=== PATIENT | female | born 1985 | race American Indian/Alaskan Native ===

== ENCOUNTER 2016-11-10 19:19 | Emergency (ER) | payer BC, MEDICAID ==
[2016-11-10 20:45] VITALS: BP 141/90
--- NOTE | 2016-11-10 23:22 | Emergency Department Report ---
ED N/V/D HPI - General Chief complaint: Dental/Oral Stated complaint: TOOTHACHE Time Seen by Provider: 11/10/16 23:20 Source: patient, family Mode of arrival: Ambulatory Limitations: No Limitations - Related Data Allergies Allergy/AdvReac Type Severity Reaction Status Date / Time No Known Allergies Allergy Unverified 04/02/16 23:28 ED Review of Systems ROS: Stated complaint: TOOTHACHE Other details as noted in HPI ED Past Medical Hx - Past Medical History Previous Medical History?: No Hx Hypertension: No Hx Diabetes: No Hx Deep Vein Thrombosis: No Hx Renal Disease: No Hx Sickle Cell Disease: No Hx Seizures: No Hx Asthma: No Hx HIV: No - Surgical History Past Surgical History?: Yes Additional Surgical History: [place] Teeth, Tonsils - Social History Smoking Status: Current Every Day Smoker Substance Use Type: Alcohol ED Physical Exam - General Limitations: No Limitations ED Course Vital Signs 11/10/16 20:00 Temperature 99.4 F Pulse Rate 80 Respiratory 20 Rate Blood Pressure 141/90 [Right] O2 Sat by Pulse 99 Oximetry Critical care attestation.: If time is entered above; I have spent that time in minutes in the direct care of this critically ill patient, excluding procedure time. ED Disposition Condition: Stable Referrals: PRIMARY CARE, [Primary Care Provider] - 3-5 Days
--- NOTE | 2016-11-10 23:23 | Emergency Department Report ---
HPI - General Chief Complaint: Dental/Oral Time Seen by Provider: 11/10/16 23:20 - HPI HPI: Patient complaining of toothache to her left upper back tooth 3 weeks. She said she was supposed to get it pulled and her dentist was supposed to refer her to sit on that visit on test, none medication. reports pain 4/10 and aching. Denies any fever or facial swelling. No nausea or vomiting. If any facial pain, sore throat or drooling. No definite cough, shortness of breath. She took [id number] pain medication but it's not helping much. ED Past Medical Hx - Past Medical History Previous Medical History?: No Hx Hypertension: No Hx Diabetes: No Hx Deep Vein Thrombosis: No Hx Renal Disease: No Hx Sickle Cell Disease: No Hx Seizures: No Hx Asthma: No Hx HIV: No - Surgical History Past Surgical History?: Yes Additional Surgical History: [place] Teeth, Tonsils - Family History Family history: no significant - Social History Smoking Status: Current Every Day Smoker Substance Use Type: Alcohol - Medications Home Medications: Home Medications Medication Instructions Recorded Confirmed Last Taken Type Acetaminophen/Codeine [Tylenol 1 tab PO Q6H PRN #12 tab 11/11/16 Unknown Rx /Codeine # 3 tab] Amoxicillin [Amoxicillin TAB] 875 mg PO BID #20 tablet 11/11/16 Unknown Rx Ibuprofen [Motrin] 600 mg PO Q8H PRN #15 tablet 11/11/16 Unknown Rx ED Review of Systems ROS: Stated complaint: TOOTHACHE Other details as noted in HPI Comment: All other systems reviewed and negative Constitutional: denies: chills, fever Eyes: denies: eye pain, eye discharge, vision change ENT: dental pain. denies: ear pain, throat pain, congestion Respiratory: no symptoms reported Cardiovascular: denies: chest pain, palpitations, edema, syncope Gastrointestinal: denies: abdominal pain, nausea, vomiting Musculoskeletal: denies: back pain, arthralgia, myalgia Skin: denies: rash, lesions Neurological: denies: headache Physical Exam - Physical Exam Vital Signs: Vital Signs 11/10/16 20:00 Temperature 99.4 F Pulse Rate 80 Respiratory 20 Rate Blood Pressure 141/90 [Right] O2 Sat by Pulse 99 Oximetry General: This is a 31-year-old female well-nourished well-developed in no acute distress. Physical Exam: Head: Normocephalic atraumatic Mouth: Moist, no pharyngeal exudate or erythema. Uvula is midline and oral airway is patent. No facial swelling. No peritonsillar abscesses. Patient with braces. Noted cavity to left tooth #16. Tenderness to palpate around #16 with mild erythema without any induration or fluctuance. No gingival enlargement. Nose: Nl mucosa. Clear Drainage. Maxillary and frontal sinuses nontender to palpate Neck: Supple, no C-spine tenderness, no tracheal deviation. Nontender to palpate. no adenopathy Ears: Bilateral TMs NL exam Bilateral EAC without any redness swelling or drainage. Abdomen: Soft, nontender to palpate in all quadrants, normal bowel sounds in all quadrant and negative CVA tenderness bilaterally. Eyes: Bilateral pupils equal and reactive to light, bilateral EOM intact. Bilateral sclera and conjunctiva without injection. Normal accommodation. Lungs: Clear to auscultate bilaterally no rhonchi wheezes or rales. Normal work of breathing extremity; No CCE. +2 pulses. No neurovascular compromise Cardiovascular: S1-S2, regular rate rhythm. No murmurs. Skin: clean Dry and intact no rash no lesions Psych: Normal mood and behavior ED Course Vital Signs 11/10/16 20:00 Temperature 99.4 F Pulse Rate 80 Respiratory 20 Rate Blood Pressure 141/90 [Right] O2 Sat by Pulse 99 Oximetry - Reevaluation(s) Reevaluation #1: 11/11/16 00:15 Patient given Motrin 800 mg while in the emergency room for toothache. ED Medical Decision Making - Medical Decision Making ED course: The patient that I'll put her on Tylenol 3, Motrin and amoxicillin and she'll need to call her dentist or I can refer her to [facility] for management of dental pain and cavities. Patient with toothache and dental caries. She was given Motrin 800 mg in the emergency room and discharged home in stable condition with prescription for Tylenol 3, Motrin and amoxicillin and follow up with dentist. Critical care attestation.: If time is entered above; I have spent that time in minutes in the direct care of this critically ill patient, excluding procedure time. ED Disposition Clinical Impression: Toothache, Dental caries Disposition: TO HOME OR SELFCARE Is pt being admited?: No Does the pt Need Aspirin: No Condition: Stable Instructions: Toothache (ED), Dental Caries (ED) Additional Instructions: Raffi Oglesby to clinic for management of dental cavities and tooth ache Take Tylenol No. [address] or operating heavy machinery as this medication will cause drowsiness Take antibiotic as scheduled. Prescriptions: Acetaminophen/Codeine [Tylenol /Codeine # 3 tab] 1 tab PO Q6H PRN #12 tab PRN Reason: Pain Amoxicillin [Amoxicillin TAB] 875 mg PO BID #20 tablet Ibuprofen [Motrin] 600 mg PO Q8H PRN #15 tablet PRN Reason: Pain Referrals: [facility] [Outside] - 3-5 Days (call in the morning to schedule an appointment) Your, Dentist [Other] - 3-5 Days Forms: Accompanied Note, Work/School Release Form(ED)
[2016-11-10] MEDS ORDERED: MOTRIN PO ONE (23:29)
== END 2016-11-11 00:27 | disposition home or self-care (01) ==
LOC: ED 19:19
DX: K02.9 Dental caries, unspecified (principal); F17.200 Nicotine dependence, unspecified, uncomplicated
CPT/HCPCS: 99282